=== PATIENT | male | born 1975 | race Caucasian/White ===

== ENCOUNTER → 2019-01-08 | Outpatient (CLI) | payer BC ==
--- NOTE | 2019-01-08 22:40 | MR ---
EXAMINATION TYPE: MR iac wo/w con DATE OF EXAM: 01/08/2019 COMPARISON: CT brain from 2013 HISTORY: Tinnitus left ear, Nasopharyngitis TECHNIQUE: Multiplanar, multisequence images of the brain and brainstem is performed without and with IV contras t, utilizing 7.5 mL intravenous Gadavist . Acoustic nerve disorder protocol. FINDINGS: Diffusion weighted images demonstrate no evidence of a recent infarct or other diffusion ab normality. There is no extra-axial fluid collection or significant white matter signal abnormality. The ventricular system and cisternal spaces are normal in size and appearance. The brain volume is age appropriate. Midline structures demonstrate normal morphology. The craniocervical junction appears within normal limits. Normal vascular flow voids are present. Mild mucosal thickening involving ethmoid sinuses reynaldo aterally. Globes are intact bilaterally. Mastoid air cells show no suspicious fluid signal bilaterally. Vestibulocochlear complexes are symmet neftali and felt within normal limits. There is no suspicious enhancing cerebellopontine angle mass ident ified bilaterally. IMPRESSION: No suspicious findings seen to account for patient's symptoms of left-sided tinnitus.
== END | disposition home or self-care (01) ==
LOC: RADMRIMAIN 20:31
PROVIDERS: ATTEND Physician Assistant
DX: H93.12 Tinnitus, left ear (principal); J00 Acute nasopharyngitis [common cold]
CPT/HCPCS: 70553; A9585

== ENCOUNTER → 2019-07-01 | Outpatient (CLI) | payer BC ==
--- NOTE | 2019-07-01 16:15 | XR ---
Thoracic spine HISTORY: Back pain following fall 3 views of the thoracic spine Thoracic vertebral bodies show preserved height, alignment, and bone mineralization. Disc spaces are maintained. There is a mild spinal curvature. Surgical clips are present in the right upper quadrant. IMPRESSION: No acute fracture or subluxation.
--- NOTE | 2019-07-01 16:17 | XR ---
Cervical spine graft history: Trauma and pain 6 views of the cervical spine Oblique images suboptimal to evaluate foramina on the left. There is some foraminal encroachment on t he right at C3-4, C5-6 and C6-7 due to lateral extension of endplates. There is multilevel spondylosi s. Minimal retrolisthesis grade 1 C3-4, C4-5. There is loss of disc height at intervertebral levels C 3-4, C4-5 and C5-6. Prevertebral soft tissues are normal. Cervical vertebral bodies show preserved he ight and bone mineralization. Some mild facet arthropathy changes are suspected. Suspect impacted wis dom teeth are present. IMPRESSION: Degenerative disc disease with limitations as described. Additional findings above.
== END | disposition home or self-care (01) ==
LOC: RADXRMAIN 14:28
PROVIDERS: ATTEND Family Medicine
DX: M43.12 Spondylolisthesis, cervical region (principal); M50.31 Other cervical disc degeneration, high cervical region; M47.812 Spondylosis without myelopathy or radiculopathy, cervical region; M46.96 Unspecified inflammatory spondylopathy, lumbar region; S39.82XA Other specified injuries of lower back, initial encounter
CPT/HCPCS: 72050; 72072

== ENCOUNTER 2019-07-19 21:39 | Emergency (ER) | payer BC ==
[2019-07-19] MEDS ORDERED: ACETAMINOPHEN ORAL SUSP 160 MG/5 ML CUP PO ONE (22:09)
--- NOTE | 2019-07-19 22:34 | XR ---
EXAMINATION TYPE: XR soft tissue neck DATE OF EXAM: 07/19/2019 COMPARISON: 07/01/2019 HISTORY: Neck pain left side pain. TECHNIQUE: 2 views FINDINGS: Epiglottis is normal. Subglottic trachea appears normal. Tonsils and adenoids appear normal . Cervical vertebra have normal alignment. There is mild degenerative disc changes from C3 to C6. IMPRESSION: Normal cervical soft tissue exam. Minimal spondylotic changes in the cervical spine. No c hange.
--- NOTE | 2019-07-19 22:35 | XR ---
EXAMINATION TYPE: XR chest 2V DATE OF EXAM: 07/19/2019 COMPARISON: 06/20/2012 HISTORY: Neck pain. Chest pain. TECHNIQUE: FINDINGS: Heart and mediastinum are normal. Lungs are clear. Diaphragm is normal. Bony thorax appears normal. IMPRESSION: Normal chest. No change.
[2019-07-19 23:45] VITALS: BP 118/92; PULSE 79; RESP 18; TEMP 98
--- NOTE | 2019-07-19 23:50 | ED ---
General Adult HPI - General Chief complaint: ENT Stated complaint: Throat pain Time Seen by Provider: 07/19/19 21:44 Source: patient, RN notes reviewed, old records reviewed Mode of arrival: ambulatory Limitations: no limitations - History of Present Illness Initial comments: 44-year-old male patient presents to the chief complaint of throat pain. Patient reports that approximately 6 PM he began experiencing pain in his cricoid cartilage region. Denies swallowing anything caustics on anything sharp. Denies any shortness of breath. Reports that there was improvement while taking naproxen. He does have some baseline postnasal drip. Denies any other complaints. Systemic: Pt denies fatigue, fever/chills, rash. Pt denies weakness, night sweats, weight loss. Neuro: Pt denies headache, visual disturbances, syncope or pre-syncope. HEENT: Pt denies ocular discharge or irritation, otalgia, rhinorrhea, or notable lymphadenopathy. Cardiopulmonary: Pt denies chest pain, SOB, heart palpitations, dyspnea on exertion. Abdominal/GI: Pt denies abdominal pain, n/v/d. : Pt denies dysuria, burning w/ urination, frequency/urgency. Denies new onset urinary or bowel incontinence. MSK: Pt denies myalgia, loss of strength or function in extremities. Neuro: Pt denies new onset weakness, paresthesias. - Related Data Home Medications Medication Instructions Recorded Confirmed No Known Home Medications 11/14/14 11/20/18 Allergies Allergy/AdvReac Type Severity Reaction Status Date / Time iodine Allergy LUNG Verified 07/19/19 21:43 SWELLING shellfish derived [Shellfish] Allergy Swelling Verified 07/19/19 21:43 Review of Systems ROS Statement: Those systems with pertinent positive or pertinent negative responses have been documented in the HPI. ROS Other: All systems not noted in ROS Statement are negative. Past Medical History Past Medical History: No Reported History History of Any Multi-Drug Resistant Organisms: None Reported Past Surgical History: Hernia Repair Past Psychological History: No Psychological Hx Reported Smoking Status: Former smoker Past Alcohol Use History: Occasional Past Drug Use History: Marijuana General Exam - General Exam Comments Initial Comments: Constitutional: NAD, AOX3, Pt has pleasant affect. HEENT: NC/AT, trachea midline, neck supple, no lymphadenopathy. Posterior pha rynx midly erythematous, without exudates. No external skin changes. External ears appear normal, without discharge. Mucous membranes moist. Eyes PERRLA, EOM intact. There is no scleral icterus. No pallor noted. Cardiopulmonary: RRR, no murmurs, rubs or gallops, no JVD noted. Lungs CTAB in anterior and posterior boucher. No peripheral edema. Abdominal exam: Abdomen soft and non-distended. Abdomen non-tender to palpation in all 4 quadrants. Bowel sounds active in LLQ. No hepatosplenomegaly. No ecchymosis Neuro: CN II-XII grossly intact. No nuchal rigidity. No raccon eyes, no mcallister sign, no hemotympanum. No cervical spinal tenderness. MSK: No posterior calf tenderness bilaterally, homans sign negative bilaterally. Posterior tibialis and radial pulse +2 bilaterally. Sensation intact in upper and lower extremities. Full active ROM in upper and lower extremities, 5/5 stregnth. Limitations: no limitations Course Vital Signs 07/19/19 07/19/19 21:40 23:43 Temperature 97.7 F 98 F Pulse Rate 92 79 Respiratory 16 18 Rate Blood Pressure 147/94 118/92 O2 Sat by Pulse 99 98 Oximetry Medical Decision Making - Medical Decision Making 44-year-old male patient presents to the chief complaint of throat pain. Patient reports that approximately 6 PM he began experiencing pain in his cricoid cartilage region. Denies swallowing anything caustics on anything sharp. Denies any shortness of breath. Reports that there was improvement while taking naproxen. He does have some baseline postnasal drip. Denies any other complaints. Pt VSS, afebrile. Physical exam displayed: Posterior pharynx midly erythematous, without exudates. No external skin changes. Group A strep negative. Soft tissue neck displayed normal cervical soft tissue exam. Chest x-ray displayed no acute process. Patient feeling much improved with oral Tylenol was able too swallow without difficulty. Will be discharged to follow up with primary care provider as well as GI consult. Case discussed with Dr. Garcia. - Lab Data Lab Results 07/19/19 Range/Units 22:14 Group A Strep Rapid Negative (Negative) Disposition Clinical Impression: Pharyngitis Disposition: HOME SELF-CARE Condition: Stable Instructions (If sedation given, give patient instructions): Pharyngitis (ED) Additional Instructions: Follow-up with primary care provider tomorrow use Tylenol and Motrin as needed. Follow up with GI consult if symptoms do not improve. Is patient prescribed a controlled substance at d/c from ED?: No Referrals: Robe Beckford MD [Primary Care Provider] - 1-2 days Alex Bass MD [STAFF PHYSICIAN] - 1-2 days
== END 2019-07-20 00:01 | disposition home or self-care (01) ==
LOC: EC 21:39
DX: J02.9 Acute pharyngitis, unspecified (principal); Z91.013 Allergy to seafood; Z91.048 Other nonmedicinal substance allergy status; Z87.891 Personal history of nicotine dependence
CPT/HCPCS: 70360; 71046; 87081; 87430; 99284

== ENCOUNTER 2019-08-01 16:32 | Emergency (ER) | payer BC ==
[2019-08-01 16:40] VITALS: BP 127/92; PULSE 90; TEMP 98.1
--- NOTE | 2019-08-01 17:38 | XR ---
EXAMINATION TYPE: XR chest 2V DATE OF EXAM: 08/01/2019 COMPARISON: 07/19/2019, 06/20/2012 TECHNIQUE: PA and lateral views submitted. HISTORY: Chest pain and cough FINDINGS: The lungs are clear and there is no pneumothorax, pleural effusion, or focal pneumonia. Mild promin ence of the right hilum is stable could be related to the ascending aorta. Findings stable dating shahriar k to 2012. No overt failure. No consolidative pneumonia. IMPRESSION: 1. No acute process.
[2019-08-01 17:42] VITALS: RESP 18
--- NOTE | 2019-08-01 18:40 | ED ---
General Adult HPI - General Chief complaint: Upper Respiratory Infection Stated complaint: Dr. Tee traveled to [place] 2 days ago Time Seen by Provider: 08/01/19 16:40 Source: patient, RN notes reviewed Mode of arrival: ambulatory Limitations: no limitations - History of Present Illness Initial comments: 44-year-old male without any significant past medical history presents to the emergency department for cough congestion sore throat. Patient states that he has had symptoms that started yesterday. Patient states he felt like he had a low-grade fever yesterday but did not check his temperature. Today he does not feel like he has a fever. Patient did travel to [place] through [facility] airport on Sunday and came back through [facility] Sunday. He was apparently with a friend who had a cough whose boss went to [place]. However his friend was neither confirm nor tested for coronavirus. He does admit to some mild shortness of breath associated with this cough. Feels like he cannot get a deep breath.Patient has no other complaints at this time including chest pain, abdominal pain, nausea or vomiting, headache, or visual changes. - Related Data Home Medications Medication Instructions Recorded Confirmed No Known Home Medications 11/14/14 11/20/18 Allergies Allergy/AdvReac Type Severity Reaction Status Date / Time iodine Allergy LUNG Verified 08/01/19 16:38 SWELLING shellfish derived [Shellfish] Allergy Swelling Verified 08/01/19 16:38 Review of Systems ROS Statement: Those systems with pertinent positive or pertinent negative responses have been documented in the HPI. ROS Other: All systems not noted in ROS Statement are negative. Past Medical History Past Medical History: No Reported History History of Any Multi-Drug Resistant Organisms: None Reported Past Surgical History: Hernia Repair Past Psychological History: No Psychological Hx Reported Smoking Status: Former smoker Past Alcohol Use History: Occasional Past Drug Use History: Marijuana General Exam Limitations: no limitations General appearance: alert, in no apparent distress Head exam: Present: atraumatic, normocephalic, normal inspection Eye exam: Present: normal appearance, PERRL, EOMI. Absent: scleral icterus, conjunctival injection, periorbital swelling ENT exam: Present: normal exam, normal oropharynx (Nonerythematous, uvula midline, no tonsillar exudates noted bilaterally), mucous membranes moist, TM's normal bilaterally, normal external ear exam Neck exam: Present: normal inspection, full ROM. Absent: tenderness, meningismus, lymphadenopathy Respiratory exam: Present: normal lung sounds bilaterally. Absent: respiratory distress, wheezes, rales, rhonchi, stridor Cardiovascular Exam: Present: regular rate, normal rhythm, normal heart sounds. Absent: systolic murmur, diastolic murmur, rubs, gallop, clicks GI/Abdominal exam: Present: soft, normal bowel sounds. Absent: distended, tenderness, guarding, rebound, rigid Course Vital Signs 08/01/19 08/01/19 16:38 17:20 Temperature 98.1 F 98.1 F Pulse Rate 90 90 Respiratory 16 18 Rate Blood Pressure 127/92 127/92 O2 Sat by Pulse 99 99 Oximetry Medical Decision Making - Medical Decision Making Vitals are stable. Patient is well appearing. Given patient's recent travel history to [place] with associated cough and mild shortness of breath he does qualify for Covis 19 testing. Therefore patient was immediately put into a room with a closed door and a mask was applied. Patient was evaluated by myself and RN using appropriate PPE including gown, mask with face sheild, gloves. Patient is stable and in no distress. Physical exam is unremarkable. Patient was initially tested for influenza which was negative. Chest x-ray showed no acute process. Patient was then tested for rotavirus. RN Allison Vargas did speak to Shira Beebe, infection prevention asked about this. According to Allison, Shira will contact the health Department. Shira did also apparently say that patient should have results in 3 days and if he does not he is to call the hospital and ask to speak to infection control. Patient will self isolate. I discussed this in depth with him to do so until he receives clearance from the health department. He is in agreement. - Lab Data Lab Results 08/01/19 Range/Units 17:15 Influenza Type A RNA Not Detected (Not Detectd) Influenza Type B (PCR) Not Detected (Not Detectd) Disposition Clinical Impression: Cough Disposition: HOME SELF-CARE Condition: Good Instructions (If sedation given, give patient instructions): Acute Cough (ED) Additional Instructions: Please self quarantine until you receive clearance from the health Department. If you do not get results within 3 days call the hospital and ask to speak to infection control. If you have any worsening symptoms or difficulty breathing return to the emergency department. Is patient prescribed a controlled substance at d/c from ED?: No Referrals: Robe Beckford MD [Primary Care Provider] - 1-2 days Time of Disposition: 19:29
== END 2019-08-01 19:47 | disposition home or self-care (01) ==
LOC: EC 16:32
DX: R05 Cough (principal); R06.02 Shortness of breath; R09.89 Other specified symptoms and signs involving the circulatory and respiratory systems; J02.9 Acute pharyngitis, unspecified; Z91.041 Radiographic dye allergy status; Z91.013 Allergy to seafood; Z87.891 Personal history of nicotine dependence
CPT/HCPCS: 71046; 87502; 99285

== ENCOUNTER → 2019-09-29 | Outpatient (CLI) | payer BC | END | disposition home or self-care (01) | LOC: LABWHC1 12:05 | PROVIDERS: ATTEND Family Medicine | DX: R50.9 Fever, unspecified (principal); R05 Cough; R53.81 Other malaise | CPT/HCPCS: 87635 ==

== ENCOUNTER → 2020-03-26 | Outpatient (CLI) | payer BC ==
--- NOTE | 2020-03-26 14:34 | US ---
EXAMINATION TYPE: US duplex aorta DATE OF EXAM: 03/26/2020 COMPARISON: NONE CLINICAL HISTORY: R19.04Left lower quadrant abdominal swelling, mass. palpable area along midline abd per physician, patient does not feel anything, no family h/o AAA EXAM MEASUREMENTS: Abdominal Aorta: Proximal: 2.7 x 2.3cm Mid: 2.1 x 1.9cm Distal: 1.9 x 2.0cm Bifurcation: 0.9 x 1.2cm 1.1 x 1.2cm Normal caliber aorta seen IMPRESSION: 1. Aorta tapers normally through its visualized course.
--- NOTE | 2020-03-26 15:18 | US ---
EXAMINATION TYPE: US pelvic limited DATE OF EXAM: 03/26/2020 COMPARISON: NONE CLINICAL HISTORY: R19.04Left lower quadrant abdominal swelling, mass. Patient states he has no sympto ms in his pelvis at all Scanned bladder along with RLQ and LLQ with no obvious abnormality noted Urinary bladder is sonolucent. Posterior wall is normal. IMPRESSION: 1. Lower quadrant ultrasound negative
== END | disposition home or self-care (01) ==
LOC: RADUSWWP 12:13
PROVIDERS: ATTEND Family Medicine
DX: R19.04 Left lower quadrant abdominal swelling, mass and lump (principal); R19.00 Intra-abdominal and pelvic swelling, mass and lump, unspecified site
CPT/HCPCS: 76857; 93979

== ENCOUNTER → 2020-08-13 | Outpatient (CLI) | payer BC ==
--- NOTE | 2020-08-14 09:18 | XR ---
EXAMINATION TYPE: XR knee complete RT DATE OF EXAM: 08/13/2020 CLINICAL HISTORY: pain TECHNIQUE: Three views of the right knee are obtained. COMPARISON: None. FINDINGS: There is no acute fracture/dislocation. The tri-compartment joint spaces appear within no rmal limits. The overlying soft tissue appears unremarkable. IMPRESSION: There is no acute fracture or dislocation.ICD 10 NO FRACTURE, INITIAL EVALUATION
== END | disposition home or self-care (01) ==
LOC: RADXRMAIN 16:39
PROVIDERS: ATTEND Family Medicine
DX: M25.561 Pain in right knee (principal)

== ENCOUNTER 2023-05-05 21:43 | Emergency (ER) | payer BC ==
[2023-05-05 22:04] VITALS: PULSE 87; RESP 18
[2023-05-05] MEDS ORDERED: LIDOCAINE 1% INJ 10MG/ML (20 ML MDV) SQ ONE (23:16)
[2023-05-05] MEDS ORDERED: SULFAMETHOX-TMP 800-160MG 1 EACH TAB PO STA (23:49)
--- NOTE | 2023-05-05 23:51 | ED ---
General Adult HPI - General Chief complaint: Skin/Abscess/Foreign Body Stated complaint: facial infection Time Seen by Provider: 05/05/23 22:36 Source: patient, RN notes reviewed Mode of arrival: ambulatory Limitations: no limitations - History of Present Illness Initial comments: 48-year-old male with no significant past medical history presents the emergency department with a chief complaint of abscess. Patient reports that he noticed a small pimple on his face that started Sunday. He reports that it has had increased redness. He did apply a steroid cream on it last night which he thought was improving the abscess. He then went to work and chest when he got home and reports worsening pain and swelling. Denies any known fevers, eye pain or eye female with movement. Denies any injury or trauma. It has been a week since he last shaved his face. - Related Data Previous Rx's Medication Instructions Recorded Sulfamethox-Tmp 800-160Mg [Bactrim 1 each PO Q12HR #20 tab 05/05/23 Ds] Cephalexin [Keflex] 500 mg PO TID #21 cap 05/06/23 Allergies Allergy/AdvReac Type Severity Reaction Status Date / Time iodine Allergy LUNG Verified 08/01/19 16:38 SWELLING shellfish derived [Shellfish] Allergy Swelling Verified 08/01/19 16:38 Review of Systems ROS Statement: Those systems with pertinent positive or pertinent negative responses have been documented in the HPI. ROS Other: All systems not noted in ROS Statement are negative. Past Medical History Past Medical History: No Reported History History of Any Multi-Drug Resistant Organisms: None Reported Past Surgical History: Hernia Repair Past Psychological History: No Psychological Hx Reported Smoking Status: Never smoker Past Alcohol Use History: Occasional Past Drug Use History: Marijuana General Exam - General Exam Comments Initial Comments: General: Alert, in no acute distress Head: atraumatic normocephalic. Eyes PERRL, EOMI intact, mucous membranes moist, cheek with 1 cm x 1 cm circular lesion without fluctuance that is tender with mild surrounding erythema. Respiratory: Lungs clear to auscultation bilaterally Cardiovascular: Regular rhythm and rate Abdominal: Soft without guarding or rebound Extremities: Normal inspection with full range of motion and normal capillary refill Neuroogic: alert and oriented 3, CN II-XII intact, able to ambulate with steady gait Skin: warm dry and intact with normal color Limitations: no limitations Course Vital Signs 05/05/23 05/05/23 05/06/23 21:48 21:50 00:00 Temperature 98.2 F 98.0 F Pulse Rate 87 85 87 Respiratory 18 18 18 Rate Blood Pressure 144/99 145/90 135/99 O2 Sat by Pulse 98 99 Oximetry Procedures - Incision & Drainage Consent Obtained: verbal consent Site: face (Right cheek ) Anesthetic Used: lidocaine 1% Amount (mLs): 1 I&D Cleaning Method: Chloroprep Sterile Field Used?: No Scalpel Used: #11 Ultrasound used: No Needle Aspiration Performed?: No Irrigation Performed?: Yes I&D Drainage Obtained: Pus, Blood Loculation Noted: probing needed to break Insertion of drain: No Culture Obtained?: No Complications: pain, bleeding, nerve injury Patient Tolerated Procedure: well, no complications Medical Decision Making - Medical Decision Making Was pt. sent in by a medical professional or institution (Dr. PA, ENCODING CLERK, urgent care, hospital, or senior care...) When possible be specific @ -[No] Did you speak to anyone other than the patient for history (EMS, parent, family, police, friend...)? What history was obtained from this source @ -[No] Did you review nursing and triage notes (agree or disagree)? Why? @ -[I reviewed and agree with nursing and triage notes] Were old charts reviewed (outside hosp., previous admission, EMS record, old EKG, old radiological studies, urgent care reports/EKG's, senior care records)? Report findings @ -[No old charts were reviewed] Differential Diagnosis (chest pain, altered mental status, abdominal pain women, abdominal pain men, vaginal bleeding, weakness, fever, dyspnea, syncope, headache, dizziness, GI bleed, back pain, seizure, CVA, palpatations, mental health, musculoskeletal)? @ -[not applicable] EKG interpreted by me (3pts min.). @ -[As above] X-rays interpreted by me (1pt min.). @ -[None done] CT interpreted by me (1pt min.). @ -[None done] U/S interpreted by me (1pt. min.). @ -[None done] What testing was considered but not performed or refused? (CT, X-rays, U/S, labs)? Why? @ -[None] What meds were considered but not given or refused? Why? @ -[None] Did you discuss the management of the patient with other professionals (professionals i.e. , PA, ENCODING CLERK, lab, RT, psych nurse, manager social services, patient account analyst, teacher, electronic intelligence officer, onsite case manager)? Give summary @ -[No] Was smoking cessation discussed for >3mins.? @ -[No] Was critical care preformed (if so, how long)? @ -[No] Were there social determinants of health that impacted care today? How? (Homelessness, low income, unemployed, alcoholism, drug addiction, transportation, low edu. Level, literacy, decrease access to med. care, long-term, rehab)? @ -[No] Was there de-escalation of care discussed even if they declined (Discuss DNR or withdrawal of care, Hospice)? DNR status @ -[No] What co-morbidities impacted this encounter? (DM, HTN, Smoking, COPD, CAD, Cancer, CVA, ARF, Chemo, Hep., AIDS, mental health diagnosis, sleep apnea, morbid obesity)? @ -[None] Was patient admitted / discharged? Hospital course, mention meds given and route, prescriptions, significant lab abnormalities, going to OR and other pertinent info. @ 48-year-old male presents emergency department with facial abscess. Patient had an incision and drainage procedure performed. Purulent discharge excised. Patient tolerated well. Patient provided Bactrim. Strict return precautions were discussed. Discharged in stable condition. Case is discussed with Dr. Patterson, ED attending who agrees with plan of care Undiagnosed new problem with uncertain prognosis? @ -[No] Drug Therapy requiring intensive monitoring for toxicity (Heparin, Nitro, Insulin, Cardizem)? @ -[No] Were any procedures done? @ -[No] Diagnosis/symptom? @ -Facial Abscess Acute, or Chronic, or Acute on Chronic? @ -Acute Uncomplicated (without systemic symptoms) or Complicated (systemic symptoms)? @ -Uncomplicated Side effects of treatment? @ -[No] Exacerbation, Progression, or Severe Exacerbation? @ -[No] Poses a threat to life or bodily function? How? (Chest pain, [place], [place], pneumonia, PE, COPD, DKA, ARF, appy, cholecystitis, CVA, Diverticulitis, Homicidal, Suicidal, threat to staff... and all critical care pts) @ -Low likelihood Disposition Clinical Impression: Abscess Disposition: HOME SELF-CARE Condition: Stable Instructions (If sedation given, give patient instructions): Abscess (ED) Additional Instructions: please take antibiotics as prescribed Return to the nearest emergency department if worsening redness or excessive develops Prescriptions: Sulfamethox-Tmp 800-160Mg [Bactrim Ds] 1 each PO Q12HR #20 tab Cephalexin [Keflex] 500 mg PO TID #21 cap Is patient prescribed a controlled substance at d/c from ED?: No Referrals: Robe Beckford MD [Primary Care Provider] - 1-2 days Time of Disposition: 23:50
[2023-05-06 00:40] VITALS: BP 135/99; TEMP 98
== END 2023-05-06 00:17 | disposition home or self-care (01) ==
LOC: EC 21:43
DX: L02.01 Cutaneous abscess of face (principal); F12.90 Cannabis use, unspecified, uncomplicated; Z91.013 Allergy to seafood; Z91.09 Other allergy status, other than to drugs and biological substances
CPT/HCPCS: 10060; 99283; J2001

== ENCOUNTER 2023-05-08 19:37 | Emergency (ER) | payer BC ==
--- NOTE | 2023-05-08 21:17 | ED ---
Wound/Laceration HPI - General Chief Complaint: Wound/Laceration Stated Complaint: abcess on face Time Seen by Provider: 05/08/23 20:30 Source: patient Mode of arrival: ambulatory Limitations: no limitations - History of Present Illness Initial Comments: 48-year-old male presenting with chief complaint of facial abscess. Patient was seen here 2 days prior, abscess was drained and he was started on Keflex and Bactrim. States that today it seems that the abscess was worsening. He was seen at urgent care was advised to report to the ER. He states that the abscess has not been continuing to drain, he has not been using warm compresses. No di fficulty with extraocular motions. No periorbital involvement. No fevers or chills. No neck pain. No headache. no vision or hearing changes. - Related Data Previous Rx's Medication Instructions Recorded Sulfamethox-Tmp 800-160Mg [Bactrim 1 each PO Q12HR #20 tab 05/05/23 Ds] Cephalexin [Keflex] 500 mg PO TID #21 cap 05/06/23 Allergies Allergy/AdvReac Type Severity Reaction Status Date / Time iodine Allergy LUNG Verified 08/01/19 16:38 SWELLING shellfish derived [Shellfish] Allergy Swelling Verified 08/01/19 16:38 Review of Systems ROS Statement: Those systems with pertinent positive or pertinent negative responses have been documented in the HPI. ROS Other: All systems not noted in ROS Statement are negative. Past Medical History Past Medical History: No Reported History History of Any Multi-Drug Resistant Organisms: None Reported Past Surgical History: Hernia Repair Past Psychological History: No Psychological Hx Reported Smoking Status: Never smoker Past Alcohol Use History: Occasional Past Drug Use History: Marijuana General Exam Limitations: no limitations General appearance: alert, in no apparent distress Head exam: Present: atraumatic Eye exam: Present: normal appearance, PERRL, EOMI. Absent: periorbital swelling, periorbital tenderness Neck exam: Present: normal inspection, full ROM Respiratory exam: Absent: respiratory distress Neurological exam: Present: alert, oriented X3 Psychiatric exam: Present: normal affect, normal mood Expanded Type of lesion: Present: abscess (abscess to the R cheek) Course Vital Signs 05/08/23 05/09/23 19:44 00:03 Temperature 98.4 F 98.6 F Pulse Rate 81 79 Respiratory 18 19 Rate Blood Pressure 142/98 135/94 O2 Sat by Pulse 100 97 Oximetry Procedures - Incision & Drainage Consent Obtained: verbal consent Site: face Anesthetic Used: lidocaine 1%, without epi Scalpel Used: #11 I&D Drainage Obtained: Pus, Blood Loculation Noted: probing needed to break Culture Obtained?: Yes Patient Tolerated Procedure: well Medical Decision Making - Medical Decision Making Was pt. sent in by a medical professional or institution (SARAH Royal, PATIENT SUPPORT SPECIALIST, urgent care, hospital, or fci...) When possible be specific @ -No Did you speak to anyone other than the patient for history (EMS, parent, family, police, friend...)? What history was obtained from this source @ -No Did you review nursing and triage notes (agree or disagree)? Why? @ -I reviewed and agree with nursing and triage notes Were old charts reviewed (outside hosp., previous admission, EMS record, old EKG, old radiological studies, urgent care reports/EKG's, fci records)? Report findings @ -Patient's most recent ER visit was reviewed Differential Diagnosis (chest pain, altered mental status, abdominal pain women, abdominal pain men, vaginal bleeding, weakness, fever, dyspnea, syncope, headache, dizziness, GI bleed, back pain, seizure, CVA, palpatations, mental health, musculoskeletal)? @ -Differential includes facial abscess, periorbital cellulitis, orbital cellulitis, this is not an all inclusive list EKG interpreted by me (3pts min.). @ -As above X-rays interpreted by me (1pt min.). @ -None done CT interpreted by me (1pt min.). @ -None done U/S interpreted by me (1pt. min.). @ -None done What testing was considered but not performed or refused? (CT, X-rays, U/S, labs)? Why? @ -None What meds were considered but not given or refused? Why? @ -None Did you discuss the management of the patient with other professionals (professionals i.e. SARAH Royal, PATIENT SUPPORT SPECIALIST, lab, RT, psych nurse, social service coordinator, pesticide use medical coordinator, teacher, aoc director combat operations officer, behavioral health case manager)? Give summary @ -No Was smoking cessation discussed for >3mins.? @ -No Was critical care preformed (if so, how long)? @ -No Were there social determinants of health that impacted care today? How? (Ho melessness, low income, unemployed, alcoholism, drug addiction, transportation, low edu. Level, literacy, decrease access to med. care, long term, rehab)? @ -No Was there de-escalation of care discussed even if they declined (Discuss DNR or withdrawal of care, Hospice)? DNR status @ -No What co-morbidities impacted this encounter? (DM, HTN, Smoking, COPD, CAD, Cancer, CVA, ARF, Chemo, Hep., AIDS, mental health diagnosis, sleep apnea, morbid obesity)? @ -None Was patient admitted / discharged? Hospital course, mention meds given and route, prescriptions, significant lab abnormalities, going to OR and other pertinent info. @ -48-year-old male presenting with chief complaint of facial abscess. Patient was seen here 2 days prior treated for facial abscess with incision and drainage as well as Keflex and Bactrim. He reports back today due to concern for worsening abscess. Abscess has not been draining, patient has not been using warm compresses. History physical exam were conducted. The abscess was reincised and pus and blood are drained, wound culture is sent. Lab work shows no leukocytosis. Patient is afebrile and hemodynamically stable. No periorb ital involvement. Patient is given IV dose of clindamycin. He is instructed to continue with his antibiotics. Educated on return parameters. Educated on wound care at home. Follow-up with PCP. Report back to ER with any new or worsening symptoms. Discussed return parameters and answered all questions. Patient conveyed verbal understanding and agreed to the plan. I discussed this case in detail with my attending Dr. Zendejas Undiagnosed new problem with uncertain prognosis? @ -No Drug Therapy requiring intensive monitoring for toxicity (Heparin, Nitro, Insulin, Cardizem)? @ -No Were any procedures done? @ -No Diagnosis/symptom? @ -Facial abscess Acute, or Chronic, or Acute on Chronic? @ -Acute Uncomplicated (without systemic symptoms) or Complicated (systemic symptoms)? @ -Uncomplicated Side effects of treatment? @ -No Exacerbation, Progression, or Severe Exacerbation? @ -No Poses a threat to life or bodily function? How? (Chest pain, [place], [place], pneumonia, PE, COPD, DKA, ARF, appy, cholecystitis, CVA, Diverticulitis, Homicidal, Suicidal, threat to staff... and all critical care pts) @ -No - Lab Data Result diagrams: 05/08/23 22:25 05/08/23 22:25 Lab Results 05/08/23 05/08/23 Range/Units 22:25 22:25 WBC 8.8 (3.8-10.6) k/uL RBC 5.08 (4.30-5.90) m/uL Hgb 16.6 (13.0-17.5) gm/dL Hct 48.6 (39.0-53.0) % MCV 95.7 (80.0-100.0) fL MCH 32.6 (25.0-35.0) pg MCHC 34.1 (31.0-37.0) g/dL RDW 12.4 (11.5-15.5) % Plt Count 242 (150-450) k/uL MPV 7.5 Neutrophils % 64 % Lymphocytes % 27 % Monocytes % 5 % Eosinophils % 2 % Basophils % 0 % Neutrophils # 5.7 (1.3-7.7) k/uL Lymphocytes # 2.4 (1.0-4.8) k/uL Monocytes # 0.5 (0-1.0) k/uL Eosinophils # 0.2 (0-0.7) k/uL Basophils # 0.0 (0-0.2) k/uL Sodium 138 (137-145) mmol/L Potassium 4.0 (3.5-5.1) mmol/L Chloride 104 (98-107) mmol/L Carbon Dioxide 22 (22-30) mmol/L Anion Gap 12 mmol/L BUN 9 (9-20) mg/dL Creatinine 1.11 (0.66-1.25) mg/dL Est GFR (CKD-EPI)AfAm 89 (>60 ml/min/1.73 sqM) Est GFR (CKD-EPI)NonAf 77 (>60 ml/min/1.73 sqM) Glucose 99 (74-99) mg/dL Calcium 9.9 (8.4-10.2) mg/dL Total Bilirubin 1.0 (0.2-1.3) mg/dL AST 31 (17-59) U/L ALT 34 (4-49) U/L Alkaline Phosphatase 76 (38-126) U/L Total Protein 8.1 (6.3-8.2) g/dL Albumin 4.7 (3.5-5.0) g/dL Disposition Clinical Impression: Facial abscess Disposition: HOME SELF-CARE Condition: Good Instructions (If sedation given, give patient instructions): Abscess Incision and Drainage (ED), Abscess (ED) Additional Instructions: Follow-up with PCP. Report back to ER with any new or worsening symptoms, including but not limited to fevers, difficulty with eye movements, increased swelling. Use hot compresses for 15 minutes 4 times daily and gently express pus from the area with clean hands for the next 2 days and continue taking antibiotics as prescribed.. Is patient prescribed a controlled substance at d/c from ED?: No Referrals: Robe Beckford MD [Primary Care Provider] - 1-2 days Time of Disposition: 23:55
[2023-05-08] MEDS ORDERED: CLINDAMYCIN 600 MG in DEXTROSE 5% IN WATER 50 ML IVPB STA ×2 (22:16)
[2023-05-08 22:41] LABS: Basophils % (A) 0 %; Eosinophils # (A) 0.2 k/uL (0-0.7); Eosinophils % (A) 2 %; HCT 48.6 % (39.0-53.0); HGB 16.6 gm/dL (13.0-17.5); Lymphocytes # (A) 2.4 k/uL (1.0-4.8); Lymphocytes % (A) 27 %; MCH 32.6 pg (25.0-35.0); MCHC 34.1 g/dL (31.0-37.0); MCV 95.7 fL (80.0-100.0); Mean Platelet Volume 7.5; Monocytes # (A) 0.5 k/uL (0-1.0); Monocytes % (A) 5 %; Neutrophils # (A) 5.7 k/uL (1.3-7.7); Neutrophils % (A) 64 %; Platelet Count 242 k/uL (150-450); RBC 5.08 m/uL (4.30-5.90); RDW 12.4 % (11.5-15.5); WBC 8.8 k/uL (3.8-10.6)
[2023-05-08 22:54] LABS: ALT 34 U/L (4-49); AST 31 U/L (17-59); African American GFR (CKD) 89 (>60 ml/min/1.73 sqM); Albumin 4.7 g/dL (3.5-5.0); Alkaline Phosphatase 76 U/L (38-126); Anion Gap 12 mmol/L; Blood Urea Nitrogen 9 mg/dL (9-20); Calcium 9.9 mg/dL (8.4-10.2); Carbon Dioxide 22 mmol/L (22-30); Chloride 104 mmol/L (98-107); Glucose 99 mg/dL (74-99); Non-African American GFR(CKD) 77 (>60 ml/min/1.73 sqM); Sodium 138 mmol/L (137-145); Total Protein 8.1 g/dL (6.3-8.2)
[2023-05-09 00:31] VITALS: BP 135/94; PULSE 79; RESP 19; TEMP 98.6
== END 2023-05-09 00:30 | disposition home or self-care (01) ==
LOC: EC 19:37
DX: L02.01 Cutaneous abscess of face (principal); F12.90 Cannabis use, unspecified, uncomplicated; Z91.013 Allergy to seafood; Z88.8 Allergy status to other drugs, medicaments and biological substances
CPT/HCPCS: 36415; 80053; 85025; 87070; 87205; 99283; 96365; 10060; J0736

== ENCOUNTER 2023-05-29 20:34 | Emergency (ER) | payer BC ==
[2023-05-29] MEDS ORDERED: dexAMETHasone 2 MG TAB PO STA (21:27)
[2023-05-29] MEDS: LIDOCAINE 2% GLYDO JELLY 11 ML APPL MUCOUS MEM ONE ×2 (21:54→22:35)
[2023-05-29] MEDS ORDERED: AMOXIC-POT CLAV 875-125MG 1 EACH TAB PO STA (22:08)
--- NOTE | 2023-05-29 22:22 | ED ---
General Adult HPI - General Chief complaint: ENT Stated complaint: swollen throat Time Seen by Provider: 05/29/23 20:53 Source: patient, RN notes reviewed Mode of arrival: ambulatory Limitations: no limitations - History of Present Illness Initial comments: 48-year-old male presents the emergency department the chief complaint of sore throat. Patient reports that he woke up today and felt like his throat was swollen which prompted him to look. He reports that his uvula was swollen and painful. He reports that he took treatment at home which reduces swelling. Denies any known fever, cough, difficulty in breathing drooling or shortness of breath. - Related Data Previous Rx's Medication Instructions Recorded Sulfamethox-Tmp 800-160Mg [Bactrim 1 each PO Q12HR #20 tab 05/05/23 Ds] Cephalexin [Keflex] 500 mg PO TID #21 cap 05/06/23 Amoxic-Pot Clav 875-125Mg 1 tab PO Q12HR #20 tab 05/29/23 [Augmentin 875-125] predniSONE 50 mg PO DAILY #50 tablet 05/29/23 Allergies Allergy/AdvReac Type Severity Reaction Status Date / Time iodine Allergy LUNG Verified 05/29/23 20:52 SWELLING shellfish derived [Shellfish] Allergy Swelling Verified 05/29/23 20:52 Review of Systems ROS Statement: Those systems with pertinent positive or pertinent negative responses have been documented in the HPI. ROS Other: All systems not noted in ROS Statement are negative. Past Medical History Past Medical History: No Reported History History of Any Multi-Drug Resistant Organisms: None Reported Past Surgical History: Hernia Repair Past Psychological History: No Psychological Hx Reported Smoking Status: Never smoker Past Alcohol Use History: Occasional Past Drug Use History: Marijuana General Exam - General Exam Comments Initial Comments: General: Alert, in no acute distress Head: atraumatic normocephalic. Eyes PERRL, EOMI intact, mucous membranes moist Respiratory: Lungs clear to auscultation bilaterally Cardiovascular: Regular rate and rhythm Abdominal: Soft without guarding or rebound Extremities: Normal inspection with full range of motion and normal capillary refill Neuroogic: alert and oriented 3, CN II-XII intact, able to ambulate with steady gait Skin: warm dry and intact with normal color Limitations: no limitations Course Vital Signs 05/29/23 05/29/23 05/29/23 20:47 21:10 22:35 Temperature 97.8 F 97.9 F 97.7 F Pulse Rate 83 71 68 Respiratory 18 18 16 Rate Blood Pressure 132/94 137/95 128/70 O2 Sat by Pulse 98 96 99 Oximetry Medical Decision Making - Medical Decision Making Was pt. sent in by a medical professional or institution (, SARAH, VICE PRESIDENT CONSULTING SERVICES, urgent care, hospital, or [facility]...) When possible be specific @ -[No] Did you speak to anyone other than the patient for history (EMS, parent, family, police, friend...)? What history was obtained from this source @ -[No] Did you review nursing and triage notes (agree or disagree)? Why? @ -[I reviewed and agree with nursing and triage notes] Were old charts reviewed (outside hosp., previous admission, EMS record, old EKG, old radiological studies, urgent care reports/EKG's, [facility] records)? Report findings @ -[No old charts were reviewed] Differential Diagnosis (chest pain, altered mental status, abdominal pain women, abdominal pain men, vaginal bleeding, weakness, fever, dyspnea, syncope, headache, dizziness, GI bleed, back pain, seizure, CVA, palpatations, mental health, musculoskeletal)? @ -[not applicable] EKG interpreted by me (3pts min.). @ -[As above] X-rays interpreted by me (1pt min.). @ -[None done] CT interpreted by me (1pt min.). @ -[None done] U/S interpreted by me (1pt. min.). @ -[None done] What testing was considered but not performed or refused? (CT, X-rays, U/S, labs)? Why? @ -[None] What meds were considered but not given or refused? Why? @ -[None] Did you discuss the management of the patient with other professionals (professionals i.e. , SARAH, VICE PRESIDENT CONSULTING SERVICES, lab, RT, psych nurse, group social worker, education program specialist, teacher, code enforcement officer, director case)? Give summary @ -[No] Was smoking cessation discussed for >3mins.? @ -[No] Was critical care preformed (if so, how long)? @ -[No] Were there social determinants of health that impacted care today? How? (Homelessness, low income, unemployed, alcoholism, drug addiction, transportation, low edu. Level, literacy, decrease access to med. care, residential, rehab)? @ -[No] Was there de-escalation of care discussed even if they declined (Discuss DNR or withdrawal of care, Hospice)? DNR status @ -[No] What co-morbidities impacted this encounter? (DM, HTN, Smoking, COPD, CAD, Cancer, CVA, ARF, Chemo, Hep., AIDS, mental health diagnosis, sleep apnea, morbid obesity)? @ -[None] Was patient admitted / discharged? Hospital course, mention meds given and route, prescriptions, significant lab abnormalities, going to OR and other pertinent info. @ Discharged. This is a 48-year-old male presents to the emergency department sore throat. Patient is afebrile. Vital signs are stable. No respiratory distress noted. Uvula is midline. Patient had vital signs which were negative. He was provided Augmentin and prednisone for his symptoms. Return precautions discussed at length. Discharged in stable condition Undiagnosed new problem with uncertain prognosis? @ -[No] Drug Therapy requiring intensive monitoring for toxicity (Heparin, Nitro, Insulin, Cardizem)? @ -[No] Were any procedures done? @ -[No] Diagnosis/symptom? @ -Uvulitis Acute, or Chronic, or Acute on Chronic? @ -Acute Uncomplicated (without systemic symptoms) or Complicated (systemic symptoms)? @ -Uncomplicated Side effects of treatment? @ -[No] Exacerbation, Progression, or Severe Exacerbation? @ -[No] Poses a threat to life or bodily function? How? (Chest pain, [place], [place], pneumonia, PE, COPD, DKA, ARF, appy, cholecystitis, CVA, Diverticulitis, Homicidal, Suicidal, threat to staff... and all critical care pts) @ -Low likelihood - Lab Data Lab Results 05/29/23 05/29/23 Range/Units 21:13 21:13 Influenza Type A (PCR) Not Detected (Not Detectd) Influenza Type B (PCR) Not Detected (Not Detectd) RSV (PCR) Not Detected (Not Detectd) SARS-CoV-2 (PCR) Not Detected (Not Detectd) Group A Strep (PCR) NOT DETECTED (Not Detectd) Disposition Clinical Impression: Uvular swelling Disposition: HOME SELF-CARE Condition: Stable Instructions (If sedation given, give patient instructions): Uvulitis (ED) Additional Instructions: Please take antibiotics as prescribed Please return if high fever, worsening swelling, or difficulty in breathing develop Prescriptions: Amoxic-Pot Clav 875-125Mg [Augmentin 875-125] 1 tab PO Q12HR #20 tab predniSONE 50 mg PO DAILY #50 tablet Is patient prescribed a controlled substance at d/c from ED?: No Referrals: Robe Beckford MD [Primary Care Provider] - 1-2 days Time of Disposition: 22:22
[2023-05-29 22:58] VITALS: BP 128/70; PULSE 68; RESP 16; TEMP 97.7
== END 2023-05-29 22:38 | disposition home or self-care (01) ==
LOC: EC 20:34
DX: R07.0 Pain in throat (principal); F12.90 Cannabis use, unspecified, uncomplicated; Z88.5 Allergy status to narcotic agent; Z91.013 Allergy to seafood; Z20.822 Contact with and (suspected) exposure to COVID-19
CPT/HCPCS: 87651; 87636; 99283; J8540

== ENCOUNTER → 2024-04-16 | Outpatient (CLI) | payer BC ==
--- NOTE | 2024-04-16 14:32 | CTL ---
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 TECHNIQUE: Low dose computed tomography scan was performed through the chest at 1 mm thick sections a nd reconstructed images in multiple planes at 1 mm and [address] DLP: [address] CTDI: 2.3 mGy Automated exposure control for dose reduction was used. CT DIAGNOSTIC QUALITY: Satisfactory FINDINGS: Nodules: No clinically significant pulmonary nodules. LUNGS: COPD: Severity: None Fibrosis: Severity: None Lymph nodes: None Other findings: None RIGHT PLEURAL SPACE: Effusion: None Calcification: None Thickening: None Pneumothorax: None LEFT PLEURAL SPACE: Effusion: None Calcification: None Thickening: None Pneumothorax: None HEART: Heart Size: Normal Coronary Calcification: None Pericardial Effusion: None OTHER FINDINGS: Upper abdomen: Gallbladder is surgically absent. Bony thorax: None Supraclavicular region: None Other: None IMPRESSION: No clinically significant pulmonary nodules. CT LUNG RAD AND CT CHEST RECOMMENDATION: Lung-Rad 1 Negative: Continue annual screening with LDCT in 12 months. S Modifier (other clinically significant findings): None [facility], , 04/16/2024 2:30 PM
== END | disposition home or self-care (01) ==
LOC: RADCTMAIN 13:45
PROVIDERS: ATTEND Family Medicine
DX: Z12.2 Encounter for screening for malignant neoplasm of respiratory organs (principal); F17.210 Nicotine dependence, cigarettes, uncomplicated
CPT/HCPCS: 71271